=== PATIENT | male | born 1970 | race Caucasian/White ===

== ENCOUNTER 2016-11-15 19:49 | Emergency (ER) | payer OTHER ==
[~2016-11-15] VITALS: Ht 172.7 cm; Wt 72.4 kg
[~2016-11-15 19:49] MED LIST: FLAGYL500 MG PO; FLOMAX0.4 MG PO; NORTRIPTYLINE H10 MG PO; PERCOCET 5/31 TABLET PO; PREPARATION H26 GM TP; ZOFRAN ODT4 MG PO
[2016-11-15 20:30] LABS: HEMATOCRIT 44.8 % (38.0-50.0); MCH 31.4 PG (29.0-34.0); MCHC 34.6 G/DL (30.0-36.0); MCV 90.9 FL (86-99); MEAN PLAT.VOLUME 10.4 uM^3 (9.0-12.4); PLATELET COUNT 218 K/uL (156-360); RBC DIS.WIDTH-CV 11.9 % (11.8-14.6); RBC DIS.WIDTH-SD 39.8 % (39-53); RED BLOOD COUNT 4.93 M/uL (4.00-5.50); WHITE BLOOD COUNT 7.6 K/uL (4.1-10.2)
[2016-11-15 20:31] LABS: CHLORIDE 105 mEq/L (99-109); SODIUM 140 mEq/L (136-147)
[2016-11-15 20:33] LABS: GLUCOSE 100 mg/dL (70-99)
[2016-11-15 20:34] LABS: ANION GAP 10 MEQ/L (2-14)
[2016-11-15 20:36] LABS: SERUM ETHYL ALCOHOL < 10 mg/dL
[2016-11-15 20:37] LABS: GFR ESTIMATE (CALCULATED) > 59 mL/min/
[2016-11-15 20:38] LABS: UREA NITROGEN (BUN) 12 mg/dL (9-23)
[2016-11-15 21:44] LABS: AMPHETAMINE NEGATIVE (500 ng/mL); BARBITURATES NEGATIVE (200 ng/mL); BENZODIAZEPINES NEGATIVE (150 ng/mL); COCAINE NEGATIVE (150 ng/mL); METHADONE NEGATIVE (200 ng/mL); METHAMPHETAMINE NEGATIVE (500 ng/mL); OPIATES (MORPHINE) NEGATIVE (100 ng/mL); PHENCYCLIDINE NEGATIVE (25 ng/mL); THC CANNABINOIDS NEGATIVE (50 ng/mL); TRICYCLIC ANTIDEPRESSANTS NEGATIVE (300 ng/mL)
[2016-11-15 21:45] LABS: INTERNAL CONTROLS VALID? YES; OXYCODONE NEGATIVE (100 ng/mL); PROPOXYPHENE NEGATIVE (300 ng/mL)
[2016-11-15 22:57] VITALS: BP 134/89
== END 2016-11-15 22:59 ==
LOC: EME 19:49
DX: F33.1 Major depressive disorder, recurrent, moderate (principal)
CPT/HCPCS: 80048; 85027; 90837; 99281; 99285; G0480